=== PATIENT | male | born 1940 | race Caucasian/White ===

== ENCOUNTER → 2017-04-17 | Outpatient (CLI) | payer OTHER ==
[~2017-04-17] MED LIST: ASPI81 CHEW; COMMODE 3-IN-11 MIS; CPMMACHINE; DIPH25TA31 PO; FERR240T PO; FINA5TAB2 PO; LORA-650 PO; MIRA3350 PO; MOBI7.5T PO; OXYC1TAB63 PO; TERA5CAP3 PO; WALKER WHEELS/F1 MIS; ZANTTAB PO; [UNRECOGNIZED DRUG - CODE] TOPICAL
[2017-04-17 12:47] LABS: AUTOMATED NEUTROPHIL # 5.6 TH/MM3 (1.8-7.7); BASOPHIL % 0.4 % (0.0-2.0); EOSINOPHIL # 0.2 TH/MM3 (0-0.4); HEMATOCRIT 41.6 % (39.0-51.0); HEMOGLOBIN 14.3 GM/DL (13.0-17.0); LYMPH % 18.2 % (9.0-44.0); LYMPHOCYTE # 1.4 TH/MM3 (1.0-4.8); MEAN CELL VOLUME 95.7 FL (80.0-100.0); MEAN CORPUSCULAR HEMOGLOBIN 32.8 PG (27.0-34.0); MEAN CORPUSCULAR HGB CONC 34.3 % (32.0-36.0); MEAN PLATELET VOLUME 8.8 FL (7.0-11.0); MONO % 6.5 % (0.0-8.0); MONOCYTE # 0.5 TH/MM3 (0-0.9); NEUT % 71.9 % (16.0-70.0); PLATELET COUNT 239 TH/MM3 (150-450); RED BLOOD COUNT 4.35 MIL/MM3 (4.50-5.90); RED CELL DISTRIBUTION WIDTH 13.1 % (11.6-17.2); WHITE BLOOD COUNT 7.7 TH/MM3 (4.0-11.0)
[2017-04-17 12:48] LABS: BILIRUBIN, URINE NEG (NEG); BLOOD, URINE NEG (NEG); GLUCOSE,URINE NEG (NEG); KETONE, URINE NEG (NEG); MUCUS URINE FEW /lpf (OCC); NITRITE,URINE NEG (NEG); URINE COLOR YELLOW (YELLW/STRAW); URINE LEUKOCYTE ESTERASE NEG (NEG)
[2017-04-17 12:52] LABS: PROTHROMBIN TIME - PATIENT 10.4 SEC (9.8-11.6)
[2017-04-17 13:06] LABS: BICARBONATE 29.6 MEQ/L (21.0-32.0); CALCIUM 9.3 MG/DL (8.5-10.1); CREATININE 0.9 MG/DL (0.60-1.30)
[2017-04-17 13:21] LABS: WESTERGREN SEDIMENTATION RATE 1 mm/hr (0-20)
--- NOTE | 2017-04-18 14:09 | EKG ---
Date Performed: 04/17/2017 Time Performed: 11:51:20 PTAGE: 77 years EKG: Sinus bradycardia rSr'(V1) - probable normal variant Borderline ECG NO PREVIOUS TRACING DOCTOR: Javid Baird Interpretating Date/Time 04/18/2017 14:08:06
== END ==
LOC: CPRE 11:26
PROVIDERS: ATTEND Orthopaedic Surgery Orthopaedic Surgery of the Spine
DX: Z01.812 Encounter for preprocedural laboratory examination (principal); Z01.810 Encounter for preprocedural cardiovascular examination; M17.11 Unilateral primary osteoarthritis, right knee; R94.31 Abnormal electrocardiogram [ECG] [EKG]; Z79.01 Long term (current) use of anticoagulants
CPT/HCPCS: 36415; 80048; 81001; 85025; 85610; 85652; 85730; 93005

== ENCOUNTER 2017-04-18 08:54 | Inpatient (IN) | payer OTHER, MEDICARE ==
[~2017-04-18] VITALS: Ht 175.3 cm; Wt 74.5 kg
[~2017-04-18 08:54] MED LIST changes: -ASPI81 CHEW; -COMMODE 3-IN-11 MIS; -CPMMACHINE; -OXYC1TAB63 PO; -WALKER WHEELS/F1 MIS
[2017-04-18] MEDS ORDERED: CHLORHEXIDINE GLUCONATE 4% SOLN 120 ML BTL TOPICAL SCH (09:45)
[2017-04-18] MEDS ORDERED: VANCOMYCIN 1000 MG/NS 250 ML (for <70 kg) IV SCH ×2 (09:45)
[2017-04-18] MEDS ORDERED: METOPROLOL TARTRATE 25 MG TAB PO PRN (10:00)
[2017-04-18] MEDS ORDERED: LACTATED RINGER'S 1000 ML IV PRN (10:00)
[2017-04-18] MEDS ORDERED: POVIDONE IODINE 5% (ANTISEPSIS KIT) 4 APPLICATIONS EACH NARE PRN (10:00)
[2017-04-18] MEDS ORDERED: TRANEXAMIC ACID IV SCH ×2 (10:00→16:00)
[2017-04-18] MEDS ORDERED: SODIUM CHLORID 0.9% 500 ML IV PRN (10:00)
[2017-04-18] MEDS ORDERED: EXPAREL PERI-ARTICULAR INJECTION (TOTAL VOL. 60 ML) P-ARTICULR SCH ×2 (10:00)
[2017-04-18] MEDS ORDERED: SODIUM CHLORIDE 0.9% IV SCH ×2 (10:00→16:00)
[2017-04-18] MEDS ORDERED: CHLORHEXIDINE GLUCONATE 2 % 1 PACK (2 CLOTHS) TOPICAL PRN (10:00)
[2017-04-18] MEDS ORDERED: ONDANSETRON HCL 4 MG/2 ML VIAL IV PUSH ONE (12:00)
[2017-04-18] MEDS ORDERED: LACTATED RINGER'S 1000 ML INJ 1,000 ML IV ONE (12:00)
[2017-04-18] MEDS ORDERED: PROPOFOL 200 MG/20 ML AMP IV ONE (12:00)
[2017-04-18] MEDS ORDERED: DEXAMETHASONE SOD PHOS 4 MG/ML VIAL IV ONE (12:00)
[2017-04-18] MEDS ORDERED: PHENYLEPH/NS 1000 MCG/10 ML SYR IV ONE (12:00)
[2017-04-18] MEDS ORDERED: ePHEDrine/NS 25 MG/5 ML SYRINGE IV ONE (12:00)
[2017-04-18] MEDS ORDERED: GLYCOPYRROLATE 1 MG/5 ML SYRINGE IV PUSH ONE (12:00)
[2017-04-18] MEDS ORDERED: LIDOCAINE HCL 1% PF 5 ML SYRINGE OTHER ONE (12:00)
[2017-04-18] MEDS ORDERED: ACETAMINOPHEN 1000 MG/100 ML 100 ML IV ONE (12:13)
[2017-04-18] MEDS ORDERED: ROPIVACAINE 0.5% PF INJ 30 ML VIAL ONE (12:14)
[2017-04-18] MEDS ORDERED: GENTAMICIN SULFATE 80 MG/2 ML VIAL ONE (12:15)
[2017-04-18] MEDS: ceFAZolin 2 GM PREMIX 50 ML IV SCH (13:07)
--- NOTE | 2017-04-18 14:53 | PD.OP ---
cc: Eris Rayo MD Operative Report Date of Surgery: Apr 18, 2017 Preoperative Diagnosis: Osteoarthritis right knee. Valgus deformity right knee Postoperative Diagnosis: Same Procedure: Right total knee replacement arthroplasty, posterior stabilized Anesthesia: Spinal with IV sedation Surgeon: Eris Rayo Parts Professional(s): JESSICA Venegas Operation and Findings: EBL: 100 cc INDICATION: This patient presents with long-standing arthritis of the knee. Attachment record documents conservative measures. The patient now presents for surgical treatment. NOTE: Marta Venegas PA-C was present for the entire surgical procedure as my operator assistant i cementing. In my medical opinion her skill and care was necessary for proper management of this patient. TOURNIQUET TIME: 48 minutes COMPANY: [employer] FEMUR: Size 4, posterior stabilized TIBIA: Size 3, fixed bearing PATELLA: 35 mm POLYETHYLENE INSERT: 11 mm PROCEDURE: This patient was brought the operating room and anesthetized in the supine position. The patient was positioned supine on the table. The tourniquet was placed about the thigh, and the leg was scrubbed with alcohol followed by Hibiclens followed by ChloraPrep and draped sterilely. A timeout was done, and antibiotics were given. After exsanguination the tourniquet was inflated to 250 mmHg. An anterior incision was made and a median parapatellar arthrotomy was performed. There was some bleeding. The tourniquet was let down and reinflated at 300 mmHg. The patella was released laterally and subluxed allowing freehand cut of the patella which was then sized. A metal cap was placed over the exposed patellar surface for protection. A [place] pilot hole was placed in the distal femur allowing a 5 valgus cut removing 12 mm from the distal femur. Anterior posterior and chamfer cuts were made. The posterior stabilize osteotomy was made. The attention was directed to the tibia. Retractors were positioned. The external alignment guide was used allowing the lateral tibia to be used as referencing guide and cut utilizing an oscillating saw taking care to avoid any injury to the surrounding soft tissues. This was sized properly. Trial reduction showed that the insert fit nicely. The patient had range of motion extension 0 flexion 130. A medial release was not necessary. The bony surfaces prepared. On the back table 2 packets of methylmethacrylate were mixed. The components were cemented. Excess cement was removed. The tourniquet let down and hemostasis was controlled. The final plastic insert was inserted. Range of motion was the same as previously noted. A drain was brought through a separate stab incision. The arthrotomy was repaired with interrupted #1 Vicryl suture, subcutaneous tissue 2-0 Vicryl suture and skin with metallic luis armando A sterile dressing was applied. Sponge counts, needle counts and instrument counts were all correct. The patient tolerated procedure well and was taken to recovery in satisfactory condition. FINDINGS: There was a significant valgus deformity with bone loss of the proximal tibia and distal femur in the lateral compartment. There was hypoplastic lateral femoral condyle. The final solution appeared to be very excellent. Eris Rayo MD Apr 18, 2017 14:52
[2017-04-18] MEDS ORDERED: OXYC1TAB63 PO (14:55)
[2017-04-18] MEDS ORDERED: ASPI81 CHEW (14:55)
[2017-04-18] MEDS ORDERED: Post-op Orders (for Pharmacy) XX ONE (15:00)
[2017-04-18] MEDS ORDERED: oxyCODONE/ACETAMINOPHEN 5 MG/325 MG TAB PO PRN (15:00)
[2017-04-18] MEDS ORDERED: ASPIRIN 81 MG CHEW TAB CHEW ONE (15:00)
[2017-04-18] MEDS ORDERED: NALOXONE HCL 0.4 MG/ML AMP IV PUSH PRN (15:00)
[2017-04-18] MEDS ORDERED: DO NOT ADM ANY ANTICOAGULANT DRUGS PRN (15:10)
[2017-04-18] MEDS: LACTATED RINGER'S 1000 ML INJ 1,000 ML IV SCH (15:47)
--- NOTE | 2017-04-18 15:48 | RADRPT ---
EXAM DATE/TIME: 04/18/2017 15:24 [facility] COMPARISON: No previous studies available for comparison. INDICATIONS : Post op right total knee. MEDICAL HISTORY : None. SURGICAL HISTORY : None. ENCOUNTER: Initial ACUITY: 1 day PAIN SCORE: 0/10 LOCATION: Right Knee FINDINGS: Two view examination of the right knee demonstrates right total knee arthroplasty. All 3 components a re appropriately positioned. No fracture. Suprapatellar drain is identified. CONCLUSION: Appropriate postoperative appearance of the right knee status post total arthroplasty. Manuel Schwarz MD on April 18, 2017 at 15:45 Board Certified Radiologist. This report was verified electronically.
[2017-04-18] MEDS ORDERED: MISCELLANEOUS NURSING INFORMATION XX PRN (16:00)
[2017-04-18] MEDS ORDERED: *morphine SULFATE 4 MG/ML PERIprocedure ONLY ONE (19:57)
[2017-04-18] MEDS: ASPIRIN 81 MG CHEW TAB CHEW SCH (20:37)
[2017-04-18] MEDS ORDERED: FINASTERIDE 5 MG TAB PO SCH (21:00)
[2017-04-18] MEDS ORDERED: SENNOSIDES 8.6 MG TAB PO SCH (21:00)
[2017-04-18] MEDS ORDERED: TERAZOSIN HCL 5 MG CAP PO SCH (21:00)
[2017-04-18] MEDS ORDERED: TEMAZEPAM 15 MG CAP PO PRN (21:00)
[2017-04-18] MEDS: MAGNESIUM HYDROXIDE SUSP 30 ML CUP PO SCH (21:08)
[2017-04-18 21:20] VITALS: BP 129/71; PULSE 77; RESP 18; TEMP 96.4; O2SAT 94
[2017-04-18] MEDS: oxyCODONE/ACETAMINOPHEN 5 MG/325 MG TAB PO PRN (22:30)
[2017-04-18 23:18] VITALS: BP 144/73; PULSE 76; RESP 18; TEMP 96.7; O2SAT 94
--- NOTE | 2017-04-18 23:38 | HHI.DCPOC ---
Discharge Care Plan Diagnosis: (1) Osteoarthritis of right knee Your Health Problems Are: Difficulty with ADL Incision/Drains Inflammation Goals to Promote Your Health * To prevent worsening of your condition and complications * To maintain your health at the optimal level Directions to Meet Your Goals Take your medications as prescribed Follow your dietary instruction Follow activity as directed Keep your appointments as scheduled Take your immunizations and boosters as scheduled If your symptoms worsen call your PCP, if no PCP go to Urgent Care Center or Emergency Room Smoking is Dangerous to Your Health. Avoid second hand smoke Call the 24-hour hour crisis hotline for domestic abuse at Renetta Red Apr 18, 2017 23:38
--- NOTE | 2017-04-18 23:38 | HHI.DS ---
Discharge Summary Admission Date Apr 18, 2017 at 08:54 Discharge Date: Apr 19, 2017 Admitting Diagnosis see below Diagnosis: (1) Osteoarthritis of right knee Diagnosis: Principal ICD Codes: M17.11 - Unilateral primary osteoarthritis, right knee Procedures Right total knee arthroplasty Brief History This is a 77 year old male patient with a history of right knee pain. He had arthroscopic surgery of his right knee 25 years ago. Approximately 2-3 years ago he began having increased pain and developed a valgus deformity. He was placed on meloxicam by his PCP. In September of 2016 he was given a right knee intra -articular cortisone injection. He decreased his activity in an attempt to reduce his pain but unfortunately his function continued to decline. After review of xrays which showed moderate to severe osteoarthritis of his right knee , surgical treatment was recommended in the form of right total knee arthroplasty. He agreed and now presents for the above. Hospital Course Surgical treatment was performed on the day of admission without complication. He recovered well in PACU and was transferred to the orthopaedic floor. Pain was controlled with IV and oral medications. He was begun on ASA 81mg BID for dvt prophylaxis. He was compliant with physical therapy and all total knee restrictions including use of his CPM. After 1 day he was found to be medically stable and discharged home with home health care. He was given prescriptions for Percocet 5/325mg, and ASA 81mg BID. He was encouraged to pursue a high fiber diet and to continue with daily physical therapy. Pt Condition on Discharge: Stable Discharge Disposition: Disch w/ Home Health Serv Discharge Instructions Diet Instructions: As Tolerated, No Restrictions, High Fiber Diet Activities You Can Perform: Weight Bearing as Clemencia Activities to Avoid: Strenuous Activity Additional Activity Instruc.: TKA protocol CPM bid as tolerated. New Medications: Commode 3-in-1 (Commode 3-in-1) 1 Mis Mis EA .ROUTE DIRECTED, #1 0 Refills CPM-Continuous Passive Motion Machine (CPM-Continuous Passive Motion Machine) 1 Ea Device EA .ROUTE DIRECTED, #1 0 Refills Walker with Front Wheels (Walker with Front Wheels) 1 Mis Mis EA .ROUTE DIRECTED, #1 0 Refills Aspirin (Tgt Aspirin) 81 Mg Chw 81 MG CHEW ONCE for Prevent Blood Clot, #60 EA Oxycodone HCl/Acetaminophen (Oxycodone-Acetaminophen 5-325) 5 Mg-325 Mg Tablet 1 TAB PO Q4H PRN for PAIN, #50 TAB Continued Medications: Acetaminophen/Diphenhydramine (Acetaminophen Pm Caplet) 500 Mg-25 Mg Tablet 2 TAB PO HS Ferrous Gluconate (Ferrous Gluconate) 240 Mg (27 Mg Iron) Tab Unknown Dose PO DAILY for Nutritional Supplement, #30 TAB 0 Refills Finasteride (Finasteride) 5 Mg Tab 5 MG PO HS for Manage Prostate Problems, #30 TAB 0 Refills Do not crush. Loratadine (Allergy Relief) 10 Mg Tab 10 MG PO DAILY, TAB Meloxicam (Mobic) 7.5 Mg Tab 7.5 MG PO HS for Pain, TAB 0 Refills Miconazole Topical Powder (Zeasorb-AF Topical Powder) 2 % Pow 1 APPLIC TOPICAL BID, CAN 0 Refills Polyethylene Glycol 3350 Powder (Miralax Powder) 17 Gm Powd 17 GM PO DAILY for Constipation, #1 CAN 0 Refills Mix and dissolve one measuring cap-ful (17 grams) in water or juice. Ranitidine (Zantac 150 Maximum Strength) 150 Mg Tab 150 MG PO DAILY, TAB Terazosin (Terazosin) 5 Mg Cap 5 MG PO HS, #30 CAP 0 Refills Renetta Red Apr 18, 2017 23:38
[2017-04-18] MEDS ORDERED: WALKER WHEELS/F1 MIS (23:41)
--- NOTE | 2017-04-18 23:41 | HHI.FF ---
Face to Face Verification Diagnosis: (1) Osteoarthritis of right knee Physical Therapy Gait training, Transfer training, bed to chair Knee: Total knee, Protocol: Right, Gait training, Full weight bearing Canvas Knee Splint: When in bed & 2 pillows btw thighs Right LE Weight Bearing: WB as tolerated Additional Instructions PT 4 days/wk for 2 weeks. WBAT RLE, TKA protocol. CPM bid as tolerated, 0-60 with goal of 100 flexion. Walker for assistance. Nursing RN Days per Week: 2 x Week(s): 1 Dressing Changes: Do not change dressing Additional Instructions Vitals assessment. Dressing assessment - do not change unless saturated or erythema. I have seen patient Angel Amin on 04/18/17. My clinical findings support the need for the requested home health care services because: Limited ability to care for self High risk of falls I certify that my clinical findings support that this patient is homebound because: Post-op weakness Unsteady gait/balance Renetta Red Apr 18, 2017 23:40
[2017-04-18] MEDS ORDERED: COMMODE 3-IN-11 MIS (23:42)
[2017-04-18] MEDS ORDERED: CPMMACHINE (23:42)
[2017-04-19] MEDS: oxyCODONE/ACETAMINOPHEN 5 MG/325 MG TAB PO PRN ×3 (02:54→14:47)
[2017-04-19] MEDS: LACTATED RINGER'S 1000 ML INJ 1,000 ML IV SCH (02:54)
[2017-04-19 03:38] VITALS: BP 118/60; PULSE 72; RESP 18; TEMP 98.5; O2SAT 96
[2017-04-19 06:57] LABS: HEMATOCRIT 35.6 % (39.0-51.0); HEMOGLOBIN 12.3 GM/DL (13.0-17.0)
--- NOTE | 2017-04-19 07:50 | PD.ORT.PN ---
Subjective Subjective Remarks Doing 'better than expected'. Pt states he is doing well. Right knee very sore but no new radiating leg pain. Minimal nausea. No concerns. Wants to consider discharge later today. No CP or SOB. Objective Vitals Vital Signs Date Time Temp Pulse Resp B/P (MAP) Pulse Ox O2 Delivery O2 Flow Rate FiO2 04/19/17 03:38 98.5 72 18 118/60 (79) 96 04/18/17 23:18 96.7 76 18 144/73 (96) 94 04/18/17 21:20 96.4 77 18 129/71 (90) 94 04/18/17 20:40 98.1 72 15 142/68 (92) 96 Room Air 04/18/17 19:00 75 17 145/65 (91) 97 Room Air 04/18/17 17:00 98.1 59 20 147/77 (100) 100 Nasal Cannula 2 04/18/17 16:30 97.0 57 16 153/75 (101) 100 Nasal Cannula 2 04/18/17 16:15 55 18 156/89 (111) 100 Nasal Cannula 2 04/18/17 16:00 96.9 54 13 142/73 (96) 100 Nasal Cannula 2 04/18/17 15:45 55 13 156/70 (98) 100 Nasal Cannula 2 04/18/17 15:30 56 21 143/66 (91) 100 Nasal Cannula 2 04/18/17 15:17 96.2 67 14 148/67 (94) 98 Nasal Cannula 2 04/18/17 09:45 98.4 63 16 153/69 (97) 98 I/O 04/18/17 04/18/17 04/18/17 04/19/17 04/19/17 04/19/17 07:00 15:00 23:00 07:00 15:00 23:00 Intake Total 1500 ml 977 ml 480 ml Output Total 100 ml 205 ml 575 ml 30 ml Balance 1400 ml 772 ml -95 ml -30 ml Intake Oral 500 ml 480 ml IV Total 1500 ml 477 ml Output Urine Total 100 ml 575 ml Drainage Total 105 ml 30 ml Estimated Blood Loss 100 ml # Voids 0 # Bowel Movements 0 Result Diagram: 04/19/17 0600 Imaging Last 24 hours Impressions Knee X-Ray 04/18/17 1447 Signed Impressions: Service Date/Time: Tuesday, April 18, 2017 15:24 - CONCLUSION: Appropriate postoperative appearance of the right knee status post total arthroplasty. Manuel Schwarz MD Procedures Right total knee arthroplasty Objective Remarks Sitting up in bed, NAD VSS RLE Dressing c/d/i, drain in place, mild swelling and warmth, no erythema +motor at, +sens, +nvi thigh and calf supple, neg homans Assessment & Plan Ortho Post Op Day #: 1 Problem List: (1) Osteoarthritis of right knee ICD Codes: M17.11 - Unilateral primary osteoarthritis, right knee Qualifiers: Qualified Codes: M17.11 - Unilateral primary osteoarthritis, right knee Assessment and Plan pod#1 s/p R TKA Ortho stable. D/C drain right knee. Ok to redress drain site. Hold incision dressing changes unless saturated. ASA 81mg BID for 30 days. D/C exploration manager - po pain meds as needed. PT - WBAT RLE. TKA protocol. D/C planning, HHC today or tomorrow. F2F written. Renetta Red Apr 19, 2017 07:50
[2017-04-19 08:00] VITALS: BP 132/63; PULSE 67; RESP 17; TEMP 97.6; O2SAT 97
[2017-04-19] MEDS ORDERED: LORATADINE 10 MG TAB PO SCH (09:00)
[2017-04-19] MEDS ORDERED: FAMOTIDINE 20 MG TAB PO SCH (09:00)
[2017-04-19] MEDS: ASPIRIN 81 MG CHEW TAB CHEW SCH (10:00)
[2017-04-19] MEDS: MAGNESIUM HYDROXIDE SUSP 30 ML CUP PO SCH (10:00)
[2017-04-19] MEDS: ceFAZolin 2 GM PREMIX 50 ML IV SCH (10:01)
[2017-04-19 12:00] VITALS: BP 129/58; PULSE 68; RESP 18; TEMP 97.5; O2SAT 98
== END 2017-04-19 15:05 | disposition home health service (06) | DRG 470 ==
LOC: HSDI 08:54 → EDUNIT# 10:00 → N06A 20:55
PROVIDERS: ADMIT Orthopaedic Surgery Orthopaedic Surgery of the Spine; ATTEND Orthopaedic Surgery Orthopaedic Surgery of the Spine
PROC: 0SRC0J9 Replacement of Right Knee Joint with Synthetic Substitute, Cemented, Open Approach (ICD-10-PCS; principal; 2017-04-18 12:44)
DX: M17.11 Unilateral primary osteoarthritis, right knee (principal); M21.061 Valgus deformity, not elsewhere classified, right knee
CPT/HCPCS: 36415; 73560; 80048; 81001; 85014; 85018; 85025; 85610; 85652; 85730; 86850; 86900; 86901; 86920; 93005; 94150; C1776; C9290; J0131; J0690; J1100; J1580; J2270; J2370; J2405; J2795; J3370; J7050; J7120